=== PATIENT | male | born 1945 | race Caucasian/White ===

== ENCOUNTER 2019-01-27 08:52 | Day surgery (SDC) ==
--- NOTE | 2019-01-20 08:19 | EKG Report ---
Test Performed on : 01/20/2019 08:08:39 AM Test Reason : PAT Blood Pressure : / mmHG Vent. Rate : 062 BPM Atrial Rate : 062 BPM P-R Int : 216 ms QRS Dur : 090 ms QT Int : 408 ms P-R-T Axes : 010 -27 -11 degrees QTc Int : 414 ms Sinus rhythm. with 1st degree AV block. Inferior infarct (cited on or before 12-MAY-2018) Abnormal ECG When compared with ECG of 12-MAY-2018 16:02, premature atrial complexes. are no longer present Unconfirmed Result
[2019-01-20 09:05] LABS: BILIRUBIN URINE NEGATIVE (NEGATIVE); BLOOD URINE NEGATIVE (NEGATIVE); COLOR YELLOW; GLUCOSE URINE NEGATIVE (NEGATIVE); KETONE URINE NEGATIVE (NEGATIVE); LEUKOCYTES URINE TRACE (NEGATIVE); NITRITE URINE NEGATIVE (NEGATIVE); PROTEIN URINE TRACE mg/dL (NEGATIVE); SP GRAVITY URINE 1.013; TURBIDITY URINE CLEAR (CLEAR); URINE SOURCE CLEAN CATCH; UROBILINOGEN URINE NORMAL (NORMAL)
[2019-01-20 09:06] LABS: BASO# 0.01 X1000 (0.0-0.2); BASO% 0.2 % (0.0-0.8); EOS# 0.12 X1000 (0.0-0.7); EOS% 2.5 % (0.0-10.0); HEMATOCRIT 43.5 % (42.0-52.0); HEMOGLOBIN 14.9 g/dL (14.0-18.0); LYMPH# 1.05 X1000 (1.2-3.4); MCH 31.2 PG (27-31); MCHC 34.3 g/dL (33-37); MONO# 0.67 X1000 (0.11-0.59); MPV 10.3 FL (7.4-10.4); NEUT# 2.93 X1000 (1.4-6.5); NEUT% 61.3 % (42.2-75.2); PLT 128 X1000 (130-400); RBC 4.78 XMIL (4.7-6.1); RDW 14.6 % (11.5-14.5); WBC 4.78 X1000 (4.8-10.8)
[2019-01-20 09:08] LABS: UR EPITHELIAL CELLS <10 /HPF (<10); URINE BACTERIA NEGATIVE /HPF; URINE RBC <10 /HPF (<10); URINE WBC <10 /HPF (<10)
[2019-01-20 09:29] LABS: INR 0.96; PROTIME 13.6 Seconds (11.0-16.0); PTT 30.3 Seconds (22.3-41.8)
[2019-01-20 09:40] LABS: AGAP 12; BUN 31 mg/dL (8-22); CALCIUM 9.9 mg/dL (8.8-10.2); CHLORIDE 104 mmol/L (98-107); COSMO 298; ESTIMATED GFR > 60; GLUCOSE 82 mg/dL (70-104); POTASSIUM 3.8 mmol/L (3.5-5.1); SODIUM 147 mmol/L (136-145); TCO2 31 mmol/L (25-35)
[2019-01-27] MEDS ORDERED: LYRICA ONE (09:45)
[2019-01-27] MEDS ORDERED: KEFZOL 2 GM/D5W 2 GM/50 ML IVPB ONE (09:45)
[2019-01-27] MEDS ORDERED: REGLAN ONE (09:45)
[2019-01-27] MEDS ORDERED: PEPCID ONE (09:45)
[2019-01-27] MEDS ORDERED: LR 1,000 ML ONE (09:45)
[2019-01-27] MEDS ORDERED: CELEBREX ONE (09:45)
[2019-01-27] MEDS ORDERED: COLACE ONE (09:45)
[2019-01-27] MEDS ORDERED: TORADOL ONE (11:21)
[2019-01-27] MEDS ORDERED: CYKLOKAPRON 1,000 MG/NS 2,000 MG/200 ML IVPB ONE (11:21)
[2019-01-27] MEDS ORDERED: VANCOMYCIN ONE (11:21)
[2019-01-27] MEDS ORDERED: SODIUM CHLORIDE 0.9% ONE (11:21)
[2019-01-27] MEDS ORDERED: SENSORCAINE-MPF 0.5%/EPI 1:200,000 ONE (11:21)
[2019-01-27] MEDS ORDERED: DURAMORPH ONE (11:21)
[2019-01-27] MEDS ORDERED: EXPAREL 1.3% ONE (11:22)
[2019-01-27] MEDS ORDERED: NEOSPORIN G.U. IRRIGANT ONE (11:22)
[2019-01-27] MEDS ORDERED: DIPRIVAN 1% 500 MG/50 ML BOTTLE ONE (11:35)
[2019-01-27] MEDS ORDERED: XYLOCAINE-MPF 2% ONE (11:36)
[2019-01-27] MEDS ORDERED: OFIRMEV 1000 MG/ISOTONIC SOLN 1,000 MG/100 ML BOTTLE ONE (12:23)
[2019-01-27] MEDS ORDERED: ZOFRAN ONE (12:23)
[2019-01-27] MEDS ORDERED: DECADRON ONE (12:23)
[2019-01-27] MEDS ORDERED: DIPRIVAN 1% ONE (13:14)
[2019-01-27] MEDS ORDERED: NS 1,000 ML ONE ×2 (14:24→14:35)
--- NOTE | 2019-01-27 14:45 | Diag Imaging Result Doc PS360 ---
EXAM: KNEE 1-2 VIEWS-RIGHT INDICATION: Post op right total knee TECHNIQUE: 2 views COMPARISON: None. FINDINGS: There has been a recent right knee arthroplasty. The arthroplasty hardware is in the expected position. There is no evidence of periprosthetic fracture. Anterior skin cassie and a drainage catheter are in place. IMPRESSION: Satisfactory postoperative knee. Electronically signed by Adelso Herman 01/27/2019 2:43 PM
[2019-01-27] MEDS ORDERED: MORPHINE IV PRN ×3 (16:30)
[2019-01-27] MEDS ORDERED: NS 1,000 ML IV SCH (16:30)
[2019-01-27] MEDS ORDERED: ZOFRAN PO PRN (16:30)
[2019-01-27 16:42] LABS: URINE SOURCE CATH
[2019-01-27 16:49] LABS: BILIRUBIN URINE NEGATIVE (NEGATIVE); BLOOD URINE NEGATIVE (NEGATIVE); COLOR YELLOW; GLUCOSE URINE NEGATIVE (NEGATIVE); KETONE URINE NEGATIVE (NEGATIVE); LEUKOCYTES URINE TRACE (NEGATIVE); NITRITE URINE NEGATIVE (NEGATIVE); PH URINE 6.5; PROTEIN URINE TRACE mg/dL (NEGATIVE); SP GRAVITY URINE 1.014; TURBIDITY URINE CLEAR (CLEAR); UR EPITHELIAL CELLS >10 /HPF (<10); URINE BACTERIA NEGATIVE /HPF; URINE RBC <10 /HPF (<10); URINE WBC <10 /HPF (<10); UROBILINOGEN URINE NORMAL (NORMAL)
[2019-01-27] MEDS: OXY IR PO PRN (17:09)
[2019-01-27] MEDS ORDERED: PNEUMOVAX 23 IM ONE (19:00)
[2019-01-27] MEDS: KEFZOL 2 GM/D5W 2 GM/50 ML IVPB IV SCH (20:21)
[2019-01-27] MEDS: MYSOLINE PO SCH (20:21)
[2019-01-27] MEDS: TRANDATE PO SCH (20:21)
[2019-01-27] MEDS: NEURONTIN PO SCH (20:22)
[2019-01-27] MEDS: FLOMAX PO SCH (20:22)
[2019-01-27] MEDS ORDERED: PRAVACHOL PO SCH (21:00)
[2019-01-28] MEDS: OXY IR PO PRN ×4 (01:10→14:18)
[2019-01-28] MEDS: KEFZOL 2 GM/D5W 2 GM/50 ML IVPB IV SCH (05:38)
[2019-01-28] MEDS ORDERED: XARELTO PO SCH (06:00)
--- NOTE | 2019-01-28 06:19 | PROGRESS NOTE ---
DATE: 01/28/2019 SUBJECTIVE: The patient is a pleasant 73-year-old male who is 1 day status post right total knee arthroplasty. He is currently resting comfortably. OBJECTIVE: On physical exam, dressing is intact. Appears calf is soft. He has active dorsiflexion, plantar flexion. LABS: His labs are pending. IMPRESSION: Postoperative day #1 status post right total knee arthroplasty. PLAN: At this point, We will change his dressing, discontinue his drain and Bauer. We will mobilize with physical therapy. We will plan on discharging him home once he is mobilizing well. All questions answered. cc: Davian Hi MD
[2019-01-28 06:38] LABS: HEMATOCRIT 35.8 % (42.0-52.0); HEMOGLOBIN 12.2 g/dL (14.0-18.0)
[2019-01-28 06:40] LABS: AGAP 10; BUN 22 mg/dL (8-22); CALCIUM 8.3 mg/dL (8.8-10.2); CHLORIDE 102 mmol/L (98-107); COSMO 282; ESTIMATED GFR > 60; GLUCOSE 82 mg/dL (70-104); SODIUM 140 mmol/L (136-145); TCO2 28 mmol/L (25-35)
--- NOTE | 2019-01-28 06:57 | OPERATIVE NOTE ---
PROCEDURE DATE: 01/27/2019 PREOPERATIVE DIAGNOSIS: Degenerative osteoarthritis of the right knee. POSTOPERATIVE DIAGNOSIS: Degenerative osteoarthritis of the right knee. PROCEDURE: Right total knee arthroplasty with DePuy Attune size 8 posterior stabilized femur, a size 8 tibial tray, a 7 mm rotating platform tibial insert, and a 38 mm medialized anatomic patella. SURGEON: Davian Hi MD. ASSISTANTS: 1. loan assistant: CHRIS Dennis. 2. Second junior assistant manager: Ruben Mullins RN. ANESTHESIA: Spinal. IV FLUIDS: 1500 mL lactated Ringer's. ESTIMATED BLOOD LOSS: 30 mL. TOURNIQUET TIME: 113 minutes at 253-100 mmHg. COMPLICATIONS: None. INDICATION: The patient is a 72-year-old male with chronic history of pain from his right knee. X-rays revealed significant degenerative arthritis with valgus deformity. Given the patient's findings, recommendation to proceed with right total knee arthroplasty was offered. Risks, benefits of surgery were explained, including risks of anesthesia, , bleeding, infection, failure to relieve pain, postoperative stiffness. Nerve injury, blood clots, and other imponderables. All questions answered. Patient and family wished to proceed with surgery. DETAILS OF OPERATION: The patient was taken to the operating room and placed supine on the operating table. Once adequate anesthesia was obtained, patient's right lower extremity was subsequently prepped and draped in usual sterile fashion. Esmarch was used to exsanguinate right lower extremity. The tourniquet was inflated to 300 mmHg. A standard anterior incision was made with a skin knife. Medial and lateral skin envelopes were developed. Standard medial parapatellar arthrotomy was then performed. Patellar fat pad was excised. Retractors were then placed. Approximately 1 cm anterior to the PCL insertion, a starting reamer was passed. Intramedullary guide with a distal femoral cutting block was pinned in position. The distal femoral cut was then performed in standard fashion. A sizing block was placed and measured size 8. Corresponding pins were placed. A size 8 cutting block was pinned into position. Anterior, posterior, and chamfer cuts were then made. Attention was then turned to the proximal tibia where using the extramedullary guide, the proximal tibial cutting block was pinned in position. I had good alignment confirmed with the alignment gaviota. The proximal tibia was then resected. Medial and lateral menisci were excised. A curved osteotome was used to remove the posterior osteophytes off the distal femur. The patient had continued some residual tightness. [*]spacer block in extension, therefore, 2 mm [*]was cut and better soft tissue balancing was then conducted. Attention was then turned to the proximal tibia where a size 8 tibial tray appeared be the correct size. This was pinned in position. This was followed by central reamer and a fin punch. A box cutting guide was then pinned on the distal femur, and a box cut was performed. A trial femoral component was then impacted into position. Trial tibial insert was then placed and had good range of motion and had good soft tissue balancing. The patella was everted and resected in standard fashion. A size 38 appeared to be correct size. Corresponding holes were drilled. A size 38 patella component was then placed and good patellofemoral tracking. The trial components were then removed and copious irrigation was then performed while vancomycin was mixed with cement on the back table. Sequential cementing was then performed, first over the tibial tray, and excess cement was removed with a Limestone, followed by femoral component and excess cement was removed with a Limestone, followed by a trial tibial insert. In full extension, axial loading was maintained while cement cured. The patella component was cemented in standard fashion. Patella clamp was placed. While the cement was curing, Exparel was placed in deep soft tissue, as well as subcutaneous tissue. After cement had cured, peripheral cement was removed with small osteotome. The 7 mm rotating platform tibial insert appeared to be the correct size, the trial insert was removed. Exparel was placed deep in posterior capsule. The wound was copiously irrigated once again with antibiotic pulsatile lavage. The 7 mm rotating platform tibial insert was then placed and the knee was carried through a range of motion and had good patellofemoral tracking. A 1/8 Hemovac drain was placed and was not sewn in. Copious irrigation was then performed once again with antibiotic pulsatile lavage. #1 Vicryl was used to repair the arthrotomy followed by 2-0 Vicryl to repair the subcutaneous tissue, and skin with cassie. Adaptic, sterile 4 x 4's, Webril, cryo unit, and Colby wrap were applied to the right lower extremity. The patient tolerated the procedure well with no complications, and transferred to recovery room in stable condition. cc: Davian Hi MD
[2019-01-28] MEDS ORDERED: PROSCAR PO SCH (09:00)
[2019-01-28] MEDS ORDERED: ZYLOPRIM PO SCH (09:00)
[2019-01-28] MEDS ORDERED: MOBIC PO SCH (09:00)
[2019-01-28] MEDS ORDERED: NORVASC PO SCH (09:00)
[2019-01-28] MEDS ORDERED: ALDACTONE PO SCH (09:00)
[2019-01-28] MEDS ORDERED: KLOR-CON PO SCH (09:00)
[2019-01-28] MEDS ORDERED: HYGROTON PO SCH (09:00)
[2019-01-28] MEDS ORDERED: COZAAR PO SCH (09:00)
[2019-01-28] MEDS ORDERED: PERIDEX MT SCH (09:00)
[2019-01-28] MEDS: MYSOLINE PO SCH (10:46)
[2019-01-28] MEDS: FLOMAX PO SCH (10:47)
[2019-01-28] MEDS: TRANDATE PO SCH (10:48)
[2019-01-28] MEDS: NEURONTIN PO SCH (10:48)
[2019-01-28] MEDS ORDERED: KLOR-CON PO ONE (11:44)
[2019-01-28 12:03] VITALS: BP 159/72
== END 2019-01-28 14:57 | disposition home or self-care (01) ==
LOC: OR 08:52 → 4N 11:59 → INTOOBSV 11:59 → OR 01-28 14:57
PROVIDERS: ATTEND Orthopaedic Surgery Adult Reconstructive Orthopaedic Surgery
CPT/HCPCS: 73560; 80048; 81001; 85014; 85018; 85025; 85610; 85730; 86850; 86900; 86901; 87088; 88305; 88311; 90732; 93005; 93010; 94760; 94799; 97110; 97116; 97162; A9270; C9290; J0131; J0690; J1100; J1885; J2270; J2274; J2275; J2405; J3370; J7030; J7120; Q9974; S0138